=== PATIENT | female | born 1990 | race Caucasian/White ===

== ENCOUNTER 2016-11-14 16:05 | Emergency (ER) | payer MEDICAID ==
[~2016-11-14] VITALS: Ht 157.5 cm; Wt 58.8 kg
[~2016-11-14 16:05] MED LIST: DROS1TAB2 PO; FERR300L PO; IBUP200T48 PO; OXYC-302 PO; PREN1TAB56 PO; PROM25SU34 RC; TRAM50TA2 PO; VENL37.58 PO
[2016-11-14 16:07] VITALS: BP 128/81
[2016-11-14] MEDS ORDERED: METHOCARBAMOL 750 MG TABLET ONE (17:05)
[2016-11-14] MEDS ORDERED: DIPHENHYDRAMINE 25 MG CAPSULE ONE (17:05)
[2016-11-14] MEDS ORDERED: KETOROLAC 30 MG/1 ML ONE (17:06)
[2016-11-14] MEDS ORDERED: METHOCARBAMOL 750 MG TABLET PO ONE (17:30)
[2016-11-14] MEDS ORDERED: DIPHENHYDRAMINE 25 MG CAPSULE PO ONE (17:30)
[2016-11-14] MEDS ORDERED: KETOROLAC 30 MG/1 ML IM ONE (17:30)
== END 2016-11-14 17:41 | disposition home or self-care (01) ==
LOC: ED 16:41
DX: T43.595A Adverse effect of other antipsychotics and neuroleptics, initial encounter (principal); Y92.9 Unspecified place or not applicable; M62.830 Muscle spasm of back; M54.2 Cervicalgia
CPT/HCPCS: 96372; 99283; J1885; Q0163

== ENCOUNTER 2017-03-22 16:57 | Emergency (ER) | payer MEDICAID ==
[~2017-03-22] VITALS: Ht 157.5 cm; Wt 54.8 kg
[~2017-03-22 16:57] MED LIST changes: +CEFD300C37 PO; +LEVO1TAB17 PO; +ONDA4TAB10 PO; +OXYC1TAB9 PO
[2017-03-22] MEDS ORDERED: ONDANSETRON 2MG/ML, 2ML IVPush ONE (17:30)
[2017-03-22] MEDS ORDERED: MORPHINE SULFATE 4 MG/ML, 1ML IVPush PRN (17:30)
[2017-03-22] MEDS ORDERED: SODIUM CHLORIDE 0.9% 1,000ML IVBOLUS ONE (17:30)
[2017-03-22 17:34] LABS: HEMATOCRIT 47.6 % (34.6-47.8); HEMOGLOBIN 15.3 g/dL (11.7-16.4); WHITE BLOOD COUNT 15.8 x10^3/uL (3.4-10)
[2017-03-22] MEDS ORDERED: MORPHINE SULFATE 4 MG/ML, 1ML ONE (17:39)
[2017-03-22] MEDS ORDERED: ONDANSETRON 2MG/ML, 2ML ONE (17:40)
[2017-03-22 17:45] LABS: ASPARTATE AMINO TRANSFERASE 14 U/L (15-37); BLOOD UREA NITROGEN 6 mg/dL (7-18)
[2017-03-22] MEDS ORDERED: SODIUM CHLORIDE 0.9% 1,000 ML IV ONE (18:00)
[2017-03-22] MEDS ORDERED: HYDROmorphone 1 MG/ML, 1ML IVPush PRN (18:30)
[2017-03-22] MEDS ORDERED: DIPHENHYDRAMINE 50 MG/ML, 1ML IVPush ONE (18:30)
[2017-03-22] MEDS ORDERED: CEFTRIAXONE PMX 1GM/50ML 50 ML IVPB ONE (18:30)
[2017-03-22] MEDS ORDERED: HYDROmorphone 1 MG/ML, 1ML ONE (18:36)
[2017-03-22] MEDS ORDERED: CEFTRIAXONE PMX 1GM/50ML 50 ML ONE (18:36)
[2017-03-22] MEDS ORDERED: DIPHENHYDRAMINE 50 MG/ML, 1ML ONE (18:37)
[2017-03-22 19:30] VITALS: BP 110/61
== END 2017-03-22 19:32 | disposition home or self-care (01) ==
LOC: ED 18:24
DX: N12 Tubulo-interstitial nephritis, not specified as acute or chronic (principal)
CPT/HCPCS: 36415; 80053; 81001; 83605; 83690; 84703; 85025; 87040; 87077; 87086; 87186; 96361; 96365; 96375; 99284; J0696; J1170; J1200; J2405; J7030

== ENCOUNTER 2017-04-04 15:01 | Emergency (ER) | payer MEDICAID ==
[~2017-04-04] VITALS: Ht 157.5 cm; Wt 55.9 kg
[2017-04-04] MEDS ORDERED: ONDANSETRON 2MG/ML, 2ML IVPush ONE (15:30)
[2017-04-04] MEDS ORDERED: SODIUM CHLORIDE FLUSH 10ML SYR IVF ONE (15:30)
[2017-04-04] MEDS ORDERED: SODIUM CHLORIDE 0.9% 1,000ML IVBOLUS ONE ×2 (15:30→17:00)
[2017-04-04] MEDS ORDERED: ONDANSETRON 2MG/ML, 2ML ONE (15:48)
[2017-04-04 15:50] LABS: HEMATOCRIT 46.7 % (34.6-47.8); HEMOGLOBIN 15.4 g/dL (11.7-16.4); WHITE BLOOD COUNT 14.8 x10^3/uL (3.4-10)
[2017-04-04 16:03] LABS: ASPARTATE AMINO TRANSFERASE 10 U/L (15-37); BLOOD UREA NITROGEN 14 mg/dL (7-18)
[2017-04-04] MEDS ORDERED: HYDROmorphone 1 MG/ML, 1ML ONE ×2 (16:34→17:33)
[2017-04-04] MEDS: HYDROmorphone 1 MG/ML, 1ML IVPush PRN ×2 (16:39→17:33)
[2017-04-04] MEDS ORDERED: CEFTRIAXONE PMX 1GM/50ML 50 ML IV ONE (17:00)
[2017-04-04] MEDS ORDERED: CEFTRIAXONE PMX 1GM/50ML 50 ML ONE (17:23)
[2017-04-04 18:12] VITALS: BP 91/56
== END 2017-04-04 18:32 | disposition home or self-care (01) ==
LOC: ED 15:41
DX: N12 Tubulo-interstitial nephritis, not specified as acute or chronic (principal); Z88.5 Allergy status to narcotic agent; K08.89 Other specified disorders of teeth and supporting structures
CPT/HCPCS: 36415; 80053; 81001; 83605; 84703; 85025; 87040; 87086; 96361; 96365; 96375; 96376; 99284; J0696; J1170; J2405; J7030

== ENCOUNTER 2017-04-20 13:31 | Inpatient (IN) | payer MEDICAID ==
[~2017-04-20] VITALS: Ht 157.5 cm; Wt 57.0 kg
[2017-04-20] MEDS ORDERED: HYDROmorphone 1 MG/ML, 1ML ONE (14:58)
[2017-04-20] MEDS ORDERED: ONDANSETRON 2MG/ML, 2ML ONE (14:58)
[2017-04-20] MEDS ORDERED: SODIUM CHLORIDE FLUSH 10ML SYR IVF ONE (15:00)
[2017-04-20] MEDS ORDERED: SODIUM CHLORIDE 0.9% 1,000ML IV ONE (15:00)
[2017-04-20] MEDS: HYDROmorphone 1 MG/ML, 1ML IVPush PRN ×2 (15:02→15:16)
[2017-04-20 15:11] LABS: HEMATOCRIT 44.3 % (34.6-47.8); WHITE BLOOD COUNT 9.7 x10^3/uL (3.4-10)
[2017-04-20 15:17] LABS: ASPARTATE AMINO TRANSFERASE 12 U/L (15-37); BLOOD UREA NITROGEN 15 mg/dL (7-18)
[2017-04-20] MEDS ORDERED: ONDANSETRON 2MG/ML, 2ML IVPush ONE (15:30)
[2017-04-20] MEDS ORDERED: OMNIPAQUE 350 MG/ML, 100ML BOTTLE ONE (15:50)
[2017-04-20] MEDS ORDERED: KETOROLAC 30 MG/1 ML ONE (16:40)
[2017-04-20] MEDS ORDERED: PIPERACILLIN/TAZO/PMX 3.375GM 50 ML ONE (16:41)
[2017-04-20] MEDS ORDERED: PIPERACILLIN/TAZO/PMX 3.375GM 50 ML IV ONE (17:00)
[2017-04-20] MEDS ORDERED: KETOROLAC 30 MG/1 ML IVPush ONE (17:00)
[2017-04-20] MEDS ORDERED: IBUPROFEN 600 MG TABLET PO PRN (17:30)
[2017-04-20] MEDS ORDERED: ACETAMINOPHEN 325 MG TABLET PO PRN (17:30)
[2017-04-20] MEDS: HYDROcodone/APAP 5/325 TABLET PO PRN ×2 (17:59→22:56)
[2017-04-20] MEDS: SODIUM CHLORIDE 0.9% 1,000 ML IV SCH (18:00)
[2017-04-20 18:30] VITALS: BP 104/70
[2017-04-20 18:35] VITALS: BP 104/70
[2017-04-20] MEDS: ONDANSETRON ODT 4 MG PO PRN (18:54)
[2017-04-20 20:17] VITALS: BP 100/65
[2017-04-20] MEDS: ENOXAPARIN 40 MG/0.4 ML SQ SCH (20:25)
[2017-04-20] MEDS: HYDROmorphone 1 MG/ML, 1ML IV PRN ×2 (20:25→22:20)
[2017-04-21] MEDS: HYDROmorphone 1 MG/ML, 1ML IV PRN ×10 (00:39→21:42)
[2017-04-21 01:50] VITALS: BP 103/67
[2017-04-21] MEDS: ONDANSETRON ODT 4 MG PO PRN ×5 (03:09→20:10)
[2017-04-21] MEDS: HYDROcodone/APAP 5/325 TABLET PO PRN ×2 (03:09→07:21)
[2017-04-21] MEDS: SODIUM CHLORIDE 0.9% 1,000 ML IV SCH ×2 (03:55→16:00)
[2017-04-21 06:45] VITALS: BP 95/56
[2017-04-21] MEDS: CEFTRIAXONE PMX 1GM/50ML 50 ML IV SCH (07:21)
[2017-04-21] MEDS: DIPHENHYDRAMINE 50 MG CAPSULE PO PRN ×2 (08:41→16:52)
[2017-04-21] MEDS: OXYcodone/APAP 5/325MG TABLET PO PRN ×3 (11:34→20:10)
[2017-04-21 13:14] VITALS: BP 104/67
[2017-04-21] MEDS: NICOTINE 14MG/24 HR PATCH.TD24 TD ONE ×2 (13:30→14:50)
[2017-04-21 19:03] VITALS: BP 98/56
[2017-04-21] MEDS: ENOXAPARIN 40 MG/0.4 ML SQ SCH (20:11)
[2017-04-22] MEDS: HYDROmorphone 1 MG/ML, 1ML IV PRN ×3 (00:05→05:11)
[2017-04-22 00:54] VITALS: BP 100/65
[2017-04-22] MEDS: OXYcodone/APAP 5/325MG TABLET PO PRN ×5 (01:09→21:19)
[2017-04-22] MEDS: ONDANSETRON ODT 4 MG PO PRN ×3 (01:09→21:19)
[2017-04-22] MEDS: SODIUM CHLORIDE 0.9% 1,000 ML IV SCH ×3 (01:12→21:19)
[2017-04-22] MEDS: DIPHENHYDRAMINE 50 MG CAPSULE PO PRN (02:24)
[2017-04-22 06:49] VITALS: BP 103/68
[2017-04-22] MEDS: CEFTRIAXONE PMX 1GM/50ML 50 ML IV SCH (08:38)
[2017-04-22] MEDS ORDERED: OXYcodone/APAP 10/325MG TABLET PO ONE (09:30)
[2017-04-22] MEDS ORDERED: PNEUMOCOCCAL 23 VACCINE IM-VACC ONE (11:30)
[2017-04-22 12:45] VITALS: BP 109/81
[2017-04-22] MEDS: NICOTINE 14MG/24 HR PATCH.TD24 TD SCH (14:28)
[2017-04-22 19:27] VITALS: BP 129/87
[2017-04-22] MEDS: ENOXAPARIN 40 MG/0.4 ML SQ SCH (21:19)
[2017-04-23 00:54] VITALS: BP 118/81
[2017-04-23] MEDS: DIPHENHYDRAMINE 50 MG CAPSULE PO PRN (01:25)
[2017-04-23] MEDS: OXYcodone/APAP 5/325MG TABLET PO PRN ×3 (01:25→11:57)
[2017-04-23 06:57] VITALS: BP 104/68
[2017-04-23] MEDS: CEFTRIAXONE PMX 1GM/50ML 50 ML IV SCH (07:41)
[2017-04-23] MEDS: SODIUM CHLORIDE 0.9% 1,000 ML IV SCH (07:41)
[2017-04-23] MEDS: ONDANSETRON ODT 4 MG PO PRN (11:57)
[2017-04-23] MEDS: NICOTINE 14MG/24 HR PATCH.TD24 TD SCH (13:20)
[2017-04-23] MEDS ORDERED: CEFD300C37 PO (13:25)
[2017-04-23] MEDS ORDERED: OXYC1TAB7 PO (13:25)
[2017-04-23 13:26] VITALS: BP 109/74
== END 2017-04-23 14:43 | disposition home or self-care (01) | DRG 690 ==
LOC: ED 14:34 → EDIP 16:49 → 3NE 17:50
PROVIDERS: ADMIT Family Medicine; ATTEND Family Medicine
DX: N10 Acute pyelonephritis (principal); F17.210 Nicotine dependence, cigarettes, uncomplicated; Z87.440 Personal history of urinary (tract) infections; Z88.6 Allergy status to analgesic agent; Z83.6 Family history of other diseases of the respiratory system; Z84.89 Family history of other specified conditions; Z82.49 Family history of ischemic heart disease and other diseases of the circulatory system
CPT/HCPCS: 36415; 74177; 80053; 81001; 83605; 84703; 85025; 87040; 87086; 96374; 96375; J0696; J1170; J1885; J2405; J2543; Q0162; Q9967; J7030

== ENCOUNTER 2017-05-28 13:50 | Emergency (ER) | payer MEDICAID ==
[~2017-05-28] VITALS: Ht 157.5 cm; Wt 57.8 kg
[~2017-05-28 13:50] MED LIST changes: +OXYC1TAB7 PO
[2017-05-28] MEDS ORDERED: NITR100C56 PO (14:41)
[2017-05-28] MEDS ORDERED: SODIUM CHLORIDE 0.9% 1,000 ML IV ONE (15:15)
[2017-05-28] MEDS ORDERED: SODIUM CHLORIDE 0.9% 1,000ML IVBOLUS ONE (15:30)
[2017-05-28] MEDS ORDERED: SODIUM CHLORIDE FLUSH 10ML SYR IVF ONE (15:30)
[2017-05-28] MEDS ORDERED: KETOROLAC 30 MG/1 ML IVPush ONE (15:30)
[2017-05-28] MEDS ORDERED: ONDANSETRON 2MG/ML, 2ML IVPush ONE (15:30)
[2017-05-28 15:33] LABS: HEMATOCRIT 42.6 % (34.6-47.8); HEMOGLOBIN 14.6 g/dL (11.7-16.4)
[2017-05-28 15:43] LABS: BLOOD UREA NITROGEN 6 mg/dL (7-18)
[2017-05-28 15:48] LABS: ASPARTATE AMINO TRANSFERASE 17 U/L (15-37)
[2017-05-28] MEDS ORDERED: KETOROLAC 30 MG/1 ML ONE (15:52)
[2017-05-28] MEDS ORDERED: ONDANSETRON 2MG/ML, 2ML ONE (15:52)
[2017-05-28 16:19] LABS: PATH.CAST-FLAG NOT PRESENT; SPERM-FLAG NOT PRESENT; SRC-FLAG NOT PRESENT; XTAL-FLAG NOT PRESENT; YLC-FLAG NOT PRESENT
[2017-05-28 17:16] VITALS: BP 113/86
[2017-05-28] MEDS ORDERED: MAALOX/HYOSCYAMINE/LIDOCAINE 45 ML BTL ONE (17:19)
[2017-05-28] MEDS ORDERED: MAALOX/HYOSCYAMINE/LIDOCAINE 45 ML BTL PO ONE (17:30)
== END 2017-05-28 18:05 | disposition home or self-care (01) ==
LOC: ED 17:21
DX: N30.90 Cystitis, unspecified without hematuria (principal); Z90.49 Acquired absence of other specified parts of digestive tract
CPT/HCPCS: 36415; 74176; 80053; 81001; 83605; 83690; 84703; 85025; 87086; 96361; 96374; 96375; 99285; J1885; J2405; J7030

== ENCOUNTER 2017-07-18 12:48 | Emergency (ER) | payer MEDICAID ==
[~2017-07-18] VITALS: Ht 157.5 cm; Wt 58.0 kg
[~2017-07-18 12:48] MED LIST changes: -IBUP200T48 PO; +IBUP200T49 PO; +NITR100C56 PO
[2017-07-18] MEDS ORDERED: SODIUM CHLORIDE 0.9% 1,000ML IVBOLUS ONE (14:00)
[2017-07-18] MEDS ORDERED: DIPHENHYDRAMINE 50 MG/ML, 1ML IVPush ONE (14:00)
[2017-07-18] MEDS ORDERED: METOCLOPRAMIDE 5 MG/ML, 2ML IVPush ONE (14:00)
[2017-07-18 14:01] LABS: BASOPHILS # (AUTO) 0.04 x10^3/uL (0-0.1); BASOPHILS % (AUTO) 0 % (0-1); EOSINOPHILS # (AUTO) 0.32 x10^3/uL (0-0.4); EOSINOPHILS % (AUTO) 3 % (1-7); LYMPHOCYTES # (AUTO) 2.58 x10^3/uL (1-3.4); LYMPHOCYTES % (AUTO) 26 % (22-44); MD NO; MEAN CORPUSCULAR HEMOGLOBIN 30.9 pg (27.0-34.8); MEAN CORPUSCULAR HGB CONC 33.7 g/dL (32.4-35.8); MEAN CORPUSCULAR VOLUME 91.9 fL (80-100); MONOCYTES # (AUTO) 0.54 x10^3/uL (0.2-0.8); MONOCYTES % (AUTO) 5 % (2-9); NEUTROPHILS # (AUTO) 6.47 x10^3/uL (1.8-6.8); NEUTROPHILS % (AUTO) 65 % (42-75); PLATELET COUNT 285 x10^3/uL (130-400); RED BLOOD COUNT 4.91 x10^6/uL (3.82-5.3); RED CELL DISTRIBUTION WIDTH 14.1 % (9.6-15.2)
[2017-07-18 14:12] LABS: ALANINE AMINOTRANSFERASE 23 U/L (12-78); ALBUMIN 3.7 g/dL (3.4-5.0); ANION GAP 9 mmol/L (5-15); CALCIUM 8.7 mg/dL (8.5-10.1); CHLORIDE 110 mmol/L (98-107); CREATININE 0.85 mg/dL (0.55-1.02)
[2017-07-18 14:16] LABS: ALKALINE PHOSPHATASE 83 U/L (45-117); BILIRUBIN,TOTAL 0.4 mg/dL (0.2-1.0); TOTAL PROTEIN 7.5 g/dL (6.4-8.2)
[2017-07-18] MEDS ORDERED: DIPHENHYDRAMINE 50 MG/ML, 1ML ONE (14:21)
[2017-07-18] MEDS ORDERED: METOCLOPRAMIDE 5 MG/ML, 2ML ONE (14:22)
[2017-07-18 14:56] LABS: MICROSCOPIC INDICATED
[2017-07-18 15:11] LABS: CULTURE INDICATED? YES
[2017-07-18 16:22] VITALS: BP 118/74
== END 2017-07-18 16:44 | disposition home or self-care (01) ==
LOC: ED 14:48
DX: S39.012A Strain of muscle, fascia and tendon of lower back, initial encounter (principal); F32.9 Major depressive disorder, single episode, unspecified; X58.XXXA Exposure to other specified factors, initial encounter; Y93.89 Activity, other specified; Y92.89 Other specified places as the place of occurrence of the external cause; Y99.8 Other external cause status
CPT/HCPCS: 36415; 80053; 81001; 84703; 85025; 87086; 96361; 96374; 96375; 99284; J1200; J2765; J7030

== ENCOUNTER 2018-01-22 22:16 | Emergency (ER) | payer MEDICAID ==
[~2018-01-22] VITALS: Ht 162.6 cm; Wt 65.0 kg
[~2018-01-22 22:16] MED LIST changes: +FLUO10CA13 PO; +OLAN10TA3 PO; +OXYC-432 PO; -OXYC1TAB9 PO
[2018-01-22 23:17] LABS: CULTURE INDICATED? YES; HCG UR SG > 1.030 (1.003-1.030); MICROSCOPIC INDICATED
[2018-01-22] MEDS ORDERED: SODIUM CHLORIDE 0.9% 1,000ML IVBOLUS ONE (23:30)
[2018-01-22] MEDS ORDERED: KETOROLAC 30 MG/1 ML IVPush ONE (23:30)
[2018-01-22] MEDS ORDERED: KETOROLAC 30 MG/1 ML ONE (23:49)
[2018-01-23] MEDS ORDERED: ONDANSETRON ODT 4 MG ONE (00:06)
[2018-01-23 00:13] LABS: BASOPHILS # (AUTO) 0.07 x10^3/uL (0-0.1); BASOPHILS % (AUTO) 1 % (0-1); EOSINOPHILS # (AUTO) 0.43 x10^3/uL (0-0.4); EOSINOPHILS % (AUTO) 4 % (1-7); LYMPHOCYTES # (AUTO) 3.07 x10^3/uL (1-3.4); LYMPHOCYTES % (AUTO) 29 % (22-44); MD NO; MEAN CORPUSCULAR HGB CONC 33.9 g/dL (32.4-35.8); MEAN CORPUSCULAR VOLUME 94.3 fL (80-100); MEAN PLATELET VOLUME 8.3 fL (7.4-10.4); MONOCYTES # (AUTO) 0.82 x10^3/uL (0.2-0.8); MONOCYTES % (AUTO) 8 % (2-9); NEUTROPHILS # (AUTO) 6.34 x10^3/uL (1.8-6.8); NEUTROPHILS % (AUTO) 59 % (42-75); PLATELET COUNT 263 x10^3/uL (130-400); RED BLOOD COUNT 4.56 x10^6/uL (3.82-5.3); RED CELL DISTRIBUTION WIDTH 12.9 % (9.6-15.2)
[2018-01-23 00:21] LABS: ALBUMIN 3.7 g/dL (3.4-5.0); ANION GAP 6 mmol/L (5-15); CALCIUM 8.8 mg/dL (8.5-10.1); CHLORIDE 106 mmol/L (98-107)
[2018-01-23 00:25] LABS: ALANINE AMINOTRANSFERASE 21 U/L (12-78); ALKALINE PHOSPHATASE 80 U/L (45-117); BILIRUBIN,TOTAL 0.2 mg/dL (0.2-1.0); TOTAL PROTEIN 7.1 g/dL (6.4-8.2)
[2018-01-23] MEDS ORDERED: ONDANSETRON ODT 4 MG PO ONE (00:30)
[2018-01-23 00:38] LABS: CULTURE INDICATED? YES; MICROSCOPIC AUTO
[2018-01-23] MEDS ORDERED: CEFTRIAXONE PMX 1GM/50ML 50 ML ONE (00:46)
[2018-01-23] MEDS ORDERED: CEFTRIAXONE PMX 1GM/50ML 50 ML IV ONE (01:00)
[2018-01-23 01:29] VITALS: BP 110/74
== END 2018-01-23 01:31 | disposition home or self-care (01) ==
LOC: ED 23:59
DX: N23 Unspecified renal colic (principal); N30.01 Acute cystitis with hematuria; F31.9 Bipolar disorder, unspecified; F17.200 Nicotine dependence, unspecified, uncomplicated; Z88.0 Allergy status to penicillin; Z88.6 Allergy status to analgesic agent; Z90.89 Acquired absence of other organs; Z87.442 Personal history of urinary calculi
CPT/HCPCS: 36415; 76770; 80053; 81001; 81025; 83690; 85025; 87077; 87086; 87186; 96365; 96375; 99285; J0696; J1885; J7030; Q0162

== ENCOUNTER 2018-06-02 11:48 | Emergency (ER) | payer MEDICAID ==
[~2018-06-02] VITALS: Ht 157.5 cm; Wt 68.0 kg
[2018-06-02] MEDS ORDERED: KETOROLAC 30 MG/1 ML ONE (12:23)
[2018-06-02] MEDS ORDERED: KETOROLAC 30 MG/1 ML IM ONE (12:30)
[2018-06-02 12:43] LABS: MICROSCOPIC INDICATED
[2018-06-02 12:43] LABS: BASOPHILS # (AUTO) 0.08 x10^3/uL (0-0.1); BASOPHILS % (AUTO) 1 % (0-1); EOSINOPHILS # (AUTO) 0.93 x10^3/uL (0-0.4); EOSINOPHILS % (AUTO) 9 % (1-7); LYMPHOCYTES # (AUTO) 2.75 x10^3/uL (1-3.4); LYMPHOCYTES % (AUTO) 27 % (22-44); MD NO; MEAN CORPUSCULAR HEMOGLOBIN 29.7 pg (27.0-34.8); MEAN CORPUSCULAR HGB CONC 33.3 g/dL (32.4-35.8); MEAN CORPUSCULAR VOLUME 89.2 fL (80-100); MEAN PLATELET VOLUME 8.1 fL (7.4-10.4); MONOCYTES # (AUTO) 0.76 x10^3/uL (0.2-0.8); MONOCYTES % (AUTO) 8 % (2-9); NEUTROPHILS # (AUTO) 5.58 x10^3/uL (1.8-6.8); NEUTROPHILS % (AUTO) 55 % (42-75); PLATELET COUNT 286 x10^3/uL (130-400); RED BLOOD COUNT 4.89 x10^6/uL (3.82-5.3); RED CELL DISTRIBUTION WIDTH 13.9 % (9.6-15.2)
[2018-06-02 12:49] LABS: HCG UR SG 1.022 (1.003-1.030)
[2018-06-02 12:52] LABS: ALBUMIN 3.9 g/dL (3.4-5.0); ANION GAP 7 mmol/L (5-15); CALCIUM 8.2 mg/dL (8.5-10.1); CHLORIDE 111 mmol/L (98-107)
[2018-06-02 12:56] LABS: CULTURE INDICATED? YES
[2018-06-02 13:14] VITALS: BP 118/83
[2018-06-02] MEDS ORDERED: ONDANSETRON ODT 4 MG ONE (13:40)
[2018-06-02] MEDS ORDERED: ONDANSETRON ODT 4 MG PO ONE (14:00)
== END 2018-06-02 14:19 | disposition home or self-care (01) ==
LOC: ED 12:19
DX: G89.29 Other chronic pain (principal); R10.9 Unspecified abdominal pain; R19.7 Diarrhea, unspecified; R11.2 Nausea with vomiting, unspecified; F32.9 Major depressive disorder, single episode, unspecified; Z90.89 Acquired absence of other organs
CPT/HCPCS: 36415; 74176; 80048; 81001; 81025; 82040; 85025; 87086; 96372; 99284; J1885; Q0162

== ENCOUNTER 2018-11-01 18:13 | Emergency (ER) | payer MEDICAID ==
[~2018-11-01] VITALS: Ht 165.1 cm; Wt 81.8 kg
--- NOTE | 2018-11-01 18:13 | NUR ---
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
--- NOTE | 2018-11-01 18:21 | NUR ---
C/O R FLANK PAIN AND GROIN PAIN STARTED YESTERDAY. DENIES INJURY/FALL. 20 WKS . PER L&D NOT R/T . MONITORS APPLIED. PT RESTING ON GURNEY. FAMILY AT BEDSIDE.
[2018-11-01] MEDS ORDERED: QUET25TA5 PO (18:32)
[2018-11-01] MEDS ORDERED: CLON0.5T PO (18:32)
--- NOTE | 2018-11-01 18:55 | NUR ---
REPORT REC, L&D CALLED THEY BROUGHT PT DOWN EARLIER STATING NOT RELATED ISSUE AND NO HEART TONES DONE, CALLED AT THIS TIME TO PLEASE COMNE CHECK PT PER PROTOCOL
[2018-11-01] MEDS ORDERED: ONDANSETRON 2MG/ML, 2ML ONE (18:59)
[2018-11-01] MEDS ORDERED: HYDROmorphone 2 MG/ML, 1ML ONE (18:59)
[2018-11-01] MEDS ORDERED: HYDROmorphone 2 MG/ML, 1ML IVPush PRN (19:00)
[2018-11-01] MEDS ORDERED: ONDANSETRON 2MG/ML, 2ML IVPush ONE (19:00)
[2018-11-01 19:04] LABS: BASOPHILS # (AUTO) 0.03 x10^3/uL (0-0.1); BASOPHILS % (AUTO) 0 % (0-1); EOSINOPHILS # (AUTO) 0.04 x10^3/uL (0-0.4); EOSINOPHILS % (AUTO) 0 % (1-7); LYMPHOCYTES % (AUTO) 14 % (22-44); MD NO; MEAN CORPUSCULAR HEMOGLOBIN 30.6 pg (27.0-34.8); MEAN CORPUSCULAR HGB CONC 34.5 g/dL (32.4-35.8); MEAN CORPUSCULAR VOLUME 88.8 fL (80-100); MEAN PLATELET VOLUME 8.5 fL (7.4-10.4); MONOCYTES # (AUTO) 1.21 x10^3/uL (0.2-0.8); MONOCYTES % (AUTO) 8 % (2-9); NEUTROPHILS # (AUTO) 11.38 x10^3/uL (1.8-6.8); NEUTROPHILS % (AUTO) 77 % (42-75); PLATELET COUNT 189 x10^3/uL (130-400); RED BLOOD COUNT 3.36 x10^6/uL (3.82-5.3)
[2018-11-01 19:08] LABS: ALANINE AMINOTRANSFERASE 22 U/L (12-78); ALBUMIN 2.5 g/dL (3.4-5.0); ANION GAP 10 mmol/L (5-15); CALCIUM 8.3 mg/dL (8.5-10.1); CHLORIDE 105 mmol/L (98-107)
[2018-11-01 19:11] LABS: ALKALINE PHOSPHATASE 118 U/L (45-117); BILIRUBIN,TOTAL 0.4 mg/dL (0.2-1.0); CREATININE 0.61 mg/dL (0.55-1.02); TOTAL PROTEIN 6.2 g/dL (6.4-8.2)
[2018-11-01 19:19] LABS: AMPHETAMINE SCREEN, URINE Positive (Negative); BARBITURATE SCREEN, URINE Negative (Negative); BENZODIAZEPINE SCREEN, URINE Negative (Negative); CANNABINOID SCREEN, URINE Positive (Negative); COCAINE SCREEN, URINE Negative (Negative); METHADONE SCREEN, URINE Negative (Negative); OPIATE SCREEN, URINE Negative (Negative)
[2018-11-01 19:20] LABS: CULTURE INDICATED? YES; MICROSCOPIC INDICATED
--- NOTE | 2018-11-01 19:53 | NUR ---
L&D COMPLTED EXAM, CHECKED CERVIX AND NOTED NO DIALATION, NO BLOOD, HEART TONES WERE WNL
--- NOTE | 2018-11-01 19:57 | NUR ---
PT IN US
--- NOTE | 2018-11-01 20:28 | NUR ---
PT RETURNS FROM [place].
--- NOTE | 2018-11-01 20:47 | NUR ---
LONG DISCUSSION WITH PT REGARDING DRUG USE AND , PT TEARFUL, NOTES RECENT USE BUT STATES THAT SHE HAS BEEN TRYING TO STOP. PT GIVEN [employer] INFORMATION AND SUPPORT.
[2018-11-01 21:01] VITALS: BP 155/59
[2018-11-01] MEDS ORDERED: POTASSIUM CHLORIDE 10% 40 MEQ/30 ML UDC ONE (21:07)
--- NOTE | 2018-11-01 21:16 | NUR ---
PT NOTES THAT SHE HAS NO MONEY FOR RX, GIVEN MEDICATION ASSISTANCE HANDOUT.
[2018-11-01] MEDS ORDERED: POTASSIUM CHLORIDE 20 MEQ TAB.ER.PRT PO ONE (21:30)
== END 2018-11-01 21:33 | disposition home or self-care (01) ==
LOC: ED 18:21
DX: O26.892 Other specified pregnancy related conditions, second trimester (principal); R10.11 Right upper quadrant pain; F15.10 Other stimulant abuse, uncomplicated; Z3A.22 22 weeks gestation of pregnancy
CPT/HCPCS: 36415; 76700; 76815; 80053; 80307; 81001; 83690; 85025; 87077; 87086; 87186; 93005; 96374; 96375; 99284; J1170; J2405

== ENCOUNTER 2018-12-29 21:36 | Inpatient (IN) | payer MEDICAID ==
[~2018-12-29] VITALS: Ht 157.5 cm; Wt 66.8 kg
[~2018-12-29 21:36] MED LIST changes: +CLON0.5T PO; +QUET25TA5 PO
[2018-12-29 22:15] LABS: MICROSCOPIC INDICATED
[2018-12-29 22:18] LABS: AMPHETAMINE SCREEN, URINE Negative (Negative); BENZODIAZEPINE SCREEN, URINE Negative (Negative); CANNABINOID SCREEN, URINE Positive (Negative); COCAINE SCREEN, URINE Negative (Negative); METHADONE SCREEN, URINE Negative (Negative); OPIATE SCREEN, URINE Negative (Negative)
[2018-12-29 22:19] LABS: BARBITURATE SCREEN, URINE Negative (Negative)
[2018-12-29] MEDS ORDERED: LACTATED RINGERS 1,000 ML IVBOLUS ONE (22:30)
[2018-12-29] MEDS ORDERED: CEFTRIAXONE PMX 1GM/50ML 50 ML IV ONE (22:30)
[2018-12-29] MEDS ORDERED: ONDANSETRON 2MG/ML, 2ML IVPush PRN (22:30)
[2018-12-29] MEDS ORDERED: ONDANSETRON 2MG/ML, 2ML ONE (22:37)
[2018-12-29] MEDS ORDERED: ACETAMINOPHEN 325 MG TABLET ONE (22:37)
[2018-12-29] MEDS ORDERED: SODIUM CHLORIDE 0.9% 1,000 ML IV SCH (22:45)
[2018-12-29 22:51] LABS: BASOPHILS # (AUTO) 0.04 x10^3/uL (0-0.1); BASOPHILS % (AUTO) 0 % (0-1); EOSINOPHILS # (AUTO) 0.44 x10^3/uL (0-0.4); EOSINOPHILS % (AUTO) 3 % (1-7); LYMPHOCYTES % (AUTO) 17 % (22-44); MD NO; MEAN CORPUSCULAR HEMOGLOBIN 29.2 pg (27.0-34.8); MEAN CORPUSCULAR HGB CONC 33.2 g/dL (32.4-35.8); MEAN PLATELET VOLUME 7.8 fL (7.4-10.4); MONOCYTES # (AUTO) 1.34 x10^3/uL (0.2-0.8); MONOCYTES % (AUTO) 9 % (2-9); NEUTROPHILS # (AUTO) 10.02 x10^3/uL (1.8-6.8); NEUTROPHILS % (AUTO) 70 % (42-75); PLATELET COUNT 439 x10^3/uL (130-400); RED BLOOD COUNT 3.21 x10^6/uL (3.82-5.3); RED CELL DISTRIBUTION WIDTH 14.6 % (9.6-15.2)
[2018-12-29] MEDS: ACETAMINOPHEN 325 MG TABLET PO PRN (23:02)
[2018-12-29 23:03] LABS: ALANINE AMINOTRANSFERASE 21 U/L (12-78); ALBUMIN 1.7 g/dL (3.4-5.0); ANION GAP 8 mmol/L (5-15); CALCIUM 8.4 mg/dL (8.5-10.1); CHLORIDE 106 mmol/L (98-107); CREATININE 0.65 mg/dL (0.55-1.02)
[2018-12-29 23:05] LABS: ALKALINE PHOSPHATASE 311 U/L (45-117); BILIRUBIN,TOTAL 0.6 mg/dL (0.2-1.0); TOTAL PROTEIN 6.7 g/dL (6.4-8.2)
[2018-12-30] MEDS ORDERED: OXYcodone/APAP 5/325MG TABLET ONE ×6 (00:19→20:56)
[2018-12-30] MEDS: OXYcodone/APAP 5/325MG TABLET PO PRN ×6 (00:20→20:58)
[2018-12-30] MEDS: QUETIAPINE 100MG TABLET PO SCH ×2 (00:24→20:58)
[2018-12-30] MEDS: SODIUM CHLORIDE 0.9% 1,000 ML IV SCH (01:19)
[2018-12-30] MEDS ORDERED: DOCUSATE 100 MG CAPSULE ONE ×2 (08:24→20:56)
[2018-12-30] MEDS ORDERED: PRENATAL VIT/IRON/FA 1 EACH TABLET ONE (08:24)
[2018-12-30] MEDS: DOCUSATE 100 MG CAPSULE PO SCH ×2 (08:26→20:58)
[2018-12-30] MEDS: PRENATAL VIT/IRON/FA 1 EACH TABLET PO SCH (08:27)
[2018-12-30] MEDS: LACTATED RINGERS 1,000 ML IV SCH ×2 (09:00→16:58)
[2018-12-30 12:56] VITALS: BP 104/55
[2018-12-30 14:08] VITALS: BP 116/72
[2018-12-30 19:38] VITALS: BP 114/71
[2018-12-30] MEDS ORDERED: CEFTRIAXONE PMX 1GM/50ML 50 ML IV SCH (23:00)
[2018-12-31] MEDS ORDERED: OXYcodone/APAP 5/325MG TABLET ONE ×2 (01:23→05:45)
[2018-12-31] MEDS: OXYcodone/APAP 5/325MG TABLET PO PRN ×2 (01:24→05:47)
[2018-12-31] MEDS: LACTATED RINGERS 1,000 ML IV SCH (01:55)
[2018-12-31 07:33] LABS: BASOPHILS # (AUTO) 0.02 x10^3/uL (0-0.1); BASOPHILS % (AUTO) 0 % (0-1); EOSINOPHILS # (AUTO) 0.14 x10^3/uL (0-0.4); EOSINOPHILS % (AUTO) 1 % (1-7); LYMPHOCYTES # (AUTO) 1.72 x10^3/uL (1-3.4); LYMPHOCYTES % (AUTO) 18 % (22-44); MD NO; MEAN CORPUSCULAR HEMOGLOBIN 28.4 pg (27.0-34.8); MEAN CORPUSCULAR HGB CONC 32.6 g/dL (32.4-35.8); MEAN PLATELET VOLUME 7.7 fL (7.4-10.4); MONOCYTES # (AUTO) 0.73 x10^3/uL (0.2-0.8); MONOCYTES % (AUTO) 8 % (2-9); NEUTROPHILS # (AUTO) 7.15 x10^3/uL (1.8-6.8); NEUTROPHILS % (AUTO) 73 % (42-75); PLATELET COUNT 354 x10^3/uL (130-400); RED CELL DISTRIBUTION WIDTH 14.7 % (9.6-15.2)
[2018-12-31 07:44] LABS: ALBUMIN 1.6 g/dL (3.4-5.0); ANION GAP 8 mmol/L (5-15); CALCIUM 8.5 mg/dL (8.5-10.1); CHLORIDE 106 mmol/L (98-107)
[2018-12-31 07:48] LABS: ALANINE AMINOTRANSFERASE 20 U/L (12-78); ALKALINE PHOSPHATASE 287 U/L (45-117); BILIRUBIN,TOTAL 0.5 mg/dL (0.2-1.0); CREATININE 0.56 mg/dL (0.55-1.02)
[2018-12-31 09:00] VITALS: BP 113/67
[2018-12-31] MEDS ORDERED: ACETAMINOPHEN 325 MG TABLET ONE ×2 (09:04→15:54)
[2018-12-31] MEDS ORDERED: DOCUSATE 100 MG CAPSULE ONE ×2 (09:05→20:46)
[2018-12-31] MEDS ORDERED: PRENATAL VIT/IRON/FA 1 EACH TABLET ONE (09:05)
[2018-12-31] MEDS: DOCUSATE 100 MG CAPSULE PO SCH ×2 (09:06→20:49)
[2018-12-31] MEDS: ACETAMINOPHEN 325 MG TABLET PO PRN ×2 (09:06→15:55)
[2018-12-31] MEDS: PRENATAL VIT/IRON/FA 1 EACH TABLET PO SCH (09:06)
[2018-12-31] MEDS ORDERED: CALCIUM CARBONATE 500 MG TAB.CHEW ONE (17:16)
[2018-12-31] MEDS: QUETIAPINE 100MG TABLET PO SCH (20:50)
[2018-12-31] MEDS: SODIUM CHLORIDE 0.9% 1,000 ML IV SCH (20:55)
[2018-12-31] MEDS ORDERED: SODIUM CHLORIDE FLUSH 3ML SYRINGE IVF SCH (21:00)
[2018-12-31] MEDS ORDERED: SODIUM CHLORIDE 0.9% 1,000 ML IV SCH ×2 (22:45)
[2019-01-01 07:42] VITALS: BP 110/65
[2019-01-01] MEDS ORDERED: DOCUSATE 100 MG CAPSULE ONE (08:11)
[2019-01-01] MEDS ORDERED: PRENATAL VIT/IRON/FA 1 EACH TABLET ONE (08:11)
[2019-01-01] MEDS: PRENATAL VIT/IRON/FA 1 EACH TABLET PO SCH (08:12)
[2019-01-01] MEDS: DOCUSATE 100 MG CAPSULE PO SCH (08:12)
== END 2019-01-01 09:10 | disposition home or self-care (01) | DRG 832 ==
LOC: LDOP 21:36 → LDIP 22:33 → OBSVTOIN 22:33
PROVIDERS: ADMIT Obstetrics & Gynecology; ATTEND Obstetrics & Gynecology
DX: O23.03 Infections of kidney in pregnancy, third trimester (principal); O99.323 Drug use complicating pregnancy, third trimester; O99.413 Diseases of the circulatory system complicating pregnancy, third trimester; N12 Tubulo-interstitial nephritis, not specified as acute or chronic; O99.343 Other mental disorders complicating pregnancy, third trimester; O99.333 Smoking (tobacco) complicating pregnancy, third trimester; O21.9 Vomiting of pregnancy, unspecified; O99.613 Diseases of the digestive system complicating pregnancy, third trimester; K59.00 Constipation, unspecified; F31.9 Bipolar disorder, unspecified; F12.90 Cannabis use, unspecified, uncomplicated; F17.210 Nicotine dependence, cigarettes, uncomplicated; R00.0 Tachycardia, unspecified; Z3A.29 29 weeks gestation of pregnancy
CPT/HCPCS: 36415; 80053; 80307; 81001; 85025; 86592; 86762; 86850; 86900; 87077; 87086; 87186; 87340; 87806; G0378; J0696; J2405; G0475; J7030; J7120

== ENCOUNTER 2020-03-29 20:35 | Emergency (ER) | payer MEDICAID ==
[~2020-03-29] VITALS: Ht 157.5 cm; Wt 62.0 kg
[~2020-03-29 20:35] MED LIST changes: +FERR325T23 PO; +IBUP-1222 PO; +IBUP-1223 PO; -OXYC-432 PO; +OXYC1TAB18 PO
--- NOTE | 2020-03-29 21:36 | NUR ---
pt to room from lobby
--- NOTE | 2020-03-29 22:11 | NUR ---
30/F. Pt states she has bilateral flank pain. Hx of pyelonephritis. Denies burning/urgency. Denies N/V. Diarrhea. Relapsed on ETOH abuse recently.
[2020-03-29 22:24] LABS: HCG UR SG 1.025 (1.003-1.030)
[2020-03-29 22:32] LABS: MICROSCOPIC INDICATED
[2020-03-29] MEDS ORDERED: NITROFURANTOIN (MACROBID) 100 MG CAPSULE PO ONE (23:00)
[2020-03-29] MEDS ORDERED: NITROFURANTOIN (MACROBID) 100 MG CAPSULE ONE (23:16)
[2020-03-29 23:21] VITALS: BP 139/102
--- NOTE | 2020-03-29 23:25 | NUR ---
notified of [id number] at discharge. MD mederos'd d/c.
== END 2020-03-29 23:27 | disposition home or self-care (01) ==
LOC: ED 22:20
DX: N39.0 Urinary tract infection, site not specified (principal); Z72.9 Problem related to lifestyle, unspecified; F15.10 Other stimulant abuse, uncomplicated; F12.10 Cannabis abuse, uncomplicated; F17.210 Nicotine dependence, cigarettes, uncomplicated; R00.0 Tachycardia, unspecified; Z90.49 Acquired absence of other specified parts of digestive tract
CPT/HCPCS: 81001; 81025; 87077; 87086; 87186; 93005; 99284; 99406

== ENCOUNTER 2020-07-27 02:00 | Emergency (ER) | payer MEDICAID ==
[~2020-07-27] VITALS: Ht 157.5 cm; Wt 63.0 kg
[~2020-07-27 02:00] MED LIST changes: -OXYC-302 PO; +OXYC1TAB14 PO
--- NOTE | 2020-07-27 02:29 | NUR ---
DR SHORE AT BEDSIDE FOR ASSESSMENT. PT STS [facility] HAS NOT BEEN CALLED YET AND WOULD LIKE TO MAKE A REPORT.
[2020-07-27] MEDS ORDERED: IBUPROFEN 600 MG TABLET PO ONE (02:30)
[2020-07-27] MEDS ORDERED: HYDROcodone/APAP 5/325 TABLET PO PRN (02:30)
[2020-07-27] MEDS ORDERED: LIDOCAINE 2%, 20ML INFIL ONE (02:30)
[2020-07-27] MEDS ORDERED: DIPH,PERTUSS(ACELL),TET VAC/PF 0.5 ML IM-VACC ONE ×2 (02:30→04:14)
[2020-07-27] MEDS ORDERED: ONDANSETRON ODT 4 MG PO ONE (02:30)
--- NOTE | 2020-07-27 02:30 | NUR ---
[facility] DISPATCH NOTIFIED WILL SEND UNIT TO ER ROOM 2.
[2020-07-27] MEDS ORDERED: HYDROcodone/APAP 5/325 TABLET ONE (02:37)
[2020-07-27] MEDS ORDERED: IBUPROFEN 600 MG TABLET ONE (02:37)
[2020-07-27] MEDS ORDERED: ONDANSETRON ODT 4 MG ONE (02:37)
--- NOTE | 2020-07-27 03:01 | NUR ---
SPOKE WITH [facility], WILL SEND OFFICER SHORTLY. PT NAME PEACE RITCHIE AND PT STS THIS HAPPENED AT HIS MOTHERS HOUSE OFF OF [address].
--- NOTE | 2020-07-27 03:15 | NUR ---
ALEXIS AT BEDSIDE TO TAKE REPORT AT THIS TIME
[2020-07-27] MEDS ORDERED: NEOSPORIN OINT. PKT 1 PACKET ONE (04:08)
--- NOTE | 2020-07-27 04:45 | NUR ---
Patient/Caregiver given discharge instructions and they have confirmed that they understand the instructions. Patient ambulatory with steady gait. pt given taxi voucher.
[2020-07-27 05:12] VITALS: BP 116/74
== END 2020-07-27 05:15 | disposition home or self-care (01) ==
LOC: ED 04:32
DX: S01.112A Laceration without foreign body of left eyelid and periocular area, initial encounter (principal); S06.0X0A Concussion without loss of consciousness, initial encounter; S60.410A Abrasion of right index finger, initial encounter; S60.416A Abrasion of right little finger, initial encounter; L03.011 Cellulitis of right finger; R11.2 Nausea with vomiting, unspecified; M54.2 Cervicalgia; M79.641 Pain in right hand; F17.200 Nicotine dependence, unspecified, uncomplicated; Z90.49 Acquired absence of other specified parts of digestive tract; G89.11 Acute pain due to trauma; Z88.0 Allergy status to penicillin; Y04.8XXA Assault by other bodily force, initial encounter; Y93.89 Activity, other specified; Y92.098 Other place in other non-institutional residence as the place of occurrence of the external cause; Y99.8 Other external cause status
CPT/HCPCS: 12051; 70450; 70486; 72125; 73130; 90471; 90715; 99285; Q0162

== ENCOUNTER 2020-09-28 04:27 | Emergency (ER) | payer MEDICAID ==
[~2020-09-28] VITALS: Ht 157.5 cm; Wt 63.0 kg
[2020-09-28] MEDS ORDERED: SODIUM CHLORIDE FLUSH 10ML SYR IVF ONE (05:00)
[2020-09-28] MEDS ORDERED: ASPIRIN 81 MG TABLET CHEW PO ONE (05:00)
[2020-09-28] MEDS ORDERED: LORazepam 2 MG/ML, 1ML IVPush ONE (05:00)
[2020-09-28] MEDS ORDERED: SODIUM CHLORIDE 0.9% 1,000ML IVBOLUS ONE (05:00)
[2020-09-28] MEDS ORDERED: KETOROLAC 30 MG/1 ML IVPush ONE (05:00)
[2020-09-28] MEDS ORDERED: THIAMINE 100MG TABLET PO ONE (05:00)
[2020-09-28] MEDS ORDERED: THIAMINE 100MG TABLET ONE (05:05)
[2020-09-28] MEDS ORDERED: KETOROLAC 30 MG/1 ML ONE (05:05)
[2020-09-28] MEDS ORDERED: LORazepam 2 MG/ML, 1ML ONE (05:06)
[2020-09-28] MEDS ORDERED: ASPIRIN 81 MG TABLET CHEW ONE (05:06)
[2020-09-28 05:20] LABS: BASOPHILS % (AUTO) 1 % (0-1); EOSINOPHILS % (AUTO) 4 % (1-7); LYMPHOCYTES % (AUTO) 30 % (22-44); MEAN CORPUSCULAR HEMOGLOBIN 32.7 pg (27.0-34.8); MEAN CORPUSCULAR HGB CONC 34.1 g/dL (32.4-35.8); MEAN PLATELET VOLUME 8.6 fL (7.4-10.4); MONOCYTES % (AUTO) 13 % (2-9); NEUTROPHILS % (AUTO) 52 % (42-75); PLATELET COUNT 219 x10^3/uL (130-400); RED BLOOD COUNT 4.47 x10^6/uL (3.82-5.3); RED CELL DISTRIBUTION WIDTH 15.1 % (9.6-15.2)
[2020-09-28 05:22] LABS: MD NO
[2020-09-28 05:28] LABS: ALANINE AMINOTRANSFERASE 236 U/L (12-78); ALBUMIN 3.7 g/dL (3.4-5.0); ANION GAP 6 mmol/L (5-15); CALCIUM 9.7 mg/dL (8.5-10.1); CHLORIDE 105 mmol/L (98-107); CREATININE 0.76 mg/dL (0.55-1.02)
[2020-09-28 05:32] LABS: ALKALINE PHOSPHATASE 117 U/L (45-117); BILIRUBIN,TOTAL 0.7 mg/dL (0.2-1.0); TOTAL PROTEIN 7.8 g/dL (6.4-8.2); TROPONIN I < 0.015 ng/mL (0.000-0.045)
[2020-09-28 06:42] VITALS: BP 132/85
== END 2020-09-28 06:44 | disposition home or self-care (01) ==
LOC: ED 05:59
DX: R07.89 Other chest pain (principal); K70.10 Alcoholic hepatitis without ascites; F10.239 Alcohol dependence with withdrawal, unspecified; F17.200 Nicotine dependence, unspecified, uncomplicated; Y90.0 Blood alcohol level of less than 20 mg/100 ml
CPT/HCPCS: 36415; 71045; 80053; 83690; 84484; 85025; 85379; 93005; 96361; 96374; 96375; 99285; J1885; J2060; J7030

== ENCOUNTER 2021-01-26 21:17 | Emergency (ER) | payer MEDICAID ==
[~2021-01-26] VITALS: Ht 157.5 cm; Wt 64.3 kg
[2021-01-26 21:21] VITALS: BP 152/97
[2021-01-26] MEDS ORDERED: ACETAMINOPHEN 500 MG TABLET PO ONE (22:30)
--- NOTE | 2021-01-26 23:08 | NUR ---
Patient/Caregiver given discharge instructions and they have confirmed that they understand the instructions. Patient ambulatory with steady gait.
== END 2021-01-26 23:28 | disposition home or self-care (01) ==
LOC: ED 21:48
DX: R07.89 Other chest pain (principal); F15.10 Other stimulant abuse, uncomplicated; R00.2 Palpitations; R00.0 Tachycardia, unspecified; F17.200 Nicotine dependence, unspecified, uncomplicated
CPT/HCPCS: 93005; 99283

== ENCOUNTER 2021-02-13 12:50 | Emergency (ER) | payer MEDICAID ==
[~2021-02-13] VITALS: Ht 157.5 cm; Wt 63.0 kg
--- NOTE | 2021-02-13 13:09 | NUR ---
BULL LADLE TENDER: PT AMBULATORY TO ROOM WITH STEADY GAIT FROM LOBBY WITH FINANCIAL ANALYSIS MANAGER AT THIS TIME.
[2021-02-13] MEDS ORDERED: HYDROcodone/APAP 5/325 TABLET PO ONE (13:30)
[2021-02-13] MEDS ORDERED: KETOROLAC 30 MG/1 ML IM ONE (13:30)
[2021-02-13] MEDS ORDERED: HYDROcodone/APAP 5/325 TABLET ONE (14:10)
[2021-02-13] MEDS ORDERED: KETOROLAC 30 MG/1 ML ONE (14:10)
[2021-02-13 15:01] LABS: MICROSCOPIC INDICATED
[2021-02-13 15:10] VITALS: BP 98/64
[2021-02-13] MEDS ORDERED: CEFTRIAXONE 1,000 MG ONE (15:52)
[2021-02-13] MEDS ORDERED: CEFTRIAXONE 1,000 MG IM ONE (16:00)
== END 2021-02-13 16:27 | disposition home or self-care (01) ==
LOC: ED 14:00
DX: N30.00 Acute cystitis without hematuria (principal); R11.2 Nausea with vomiting, unspecified
CPT/HCPCS: 76770; 81001; 87077; 87086; 87186; 96372; 99284; J0696; J1885